=== PATIENT | female | born 2000 | race Two or more races ===

== ENCOUNTER 2018-04-19 20:51 | Emergency (ER) | payer SELFPAY ==
[~2018-04-19] VITALS: Ht 157.5 cm; Wt 68.2 kg
[2018-04-19] MEDS ORDERED: PREN-154 PO (21:03)
[2018-04-19] MEDS ORDERED: ACETAMINOPHEN 500 MG TABLET PO ONE (21:45)
[2018-04-19 22:18] VITALS: BP 128/84
[2018-04-19 22:30] LABS: INFLUENZA TYPE A NEGATIVE FOR TYPE A (NEGATIVE); INFLUENZA TYPE B NEGATIVE FOR TYPE B (NEGATIVE)
[2018-04-19 23:16] LABS: APPEARANCE,URINE CLEAR (CLEAR); BILIRUBIN,URINE NEGATIVE (NEGATIVE); GLUCOSE, URINE (UA) NEGATIVE (NEGATIVE); KETONES,URINE NEGATIVE (NEGATIVE); LEUKOCYTE ESTERASE ,URINE NEGATIVE (NEGATIVE); NITRATE,URINE NEGATIVE (NEGATIVE); OCCULT BLOOD,URINE NEGATIVE (NEGATIVE); PROTEIN,URINE NEGATIVE (NEGATIVE); UROBILINOGEN,URINE 0.2 mg/dL (<=1.0)
== END 2018-04-19 22:28 | disposition left against medical advice (07) ==
LOC: EMS 21:11
DX: O26.893 Other specified pregnancy related conditions, third trimester (principal); R50.9 Fever, unspecified; R52 Pain, unspecified; Z79.899 Other long term (current) drug therapy; Z3A.29 29 weeks gestation of pregnancy
CPT/HCPCS: 87804

== ENCOUNTER 2023-05-26 15:51 | Emergency (ER) | payer MEDICAID, OTHER ==
[~2023-05-26] VITALS: Ht 157.5 cm; Wt 70.0 kg
[~2023-05-26 15:51] MED LIST: PREN-154 PO
[2023-05-26] MEDS ORDERED: HYDROCODONE/ACETAMINOPHEN 5-325 MG TABLET PO ONE (18:00)
[2023-05-26 19:15] VITALS: TEMP 98.3
[2023-05-26] MEDS ORDERED: IBUP-1492 PO (19:16)
[2023-05-26 19:22] VITALS: BP 108/75; PULSE 76; RESP 18
== END 2023-05-26 19:37 | disposition home or self-care (01) ==
LOC: EMS 15:51
DX: S93.401A Sprain of unspecified ligament of right ankle, initial encounter (principal); F17.210 Nicotine dependence, cigarettes, uncomplicated; F12.90 Cannabis use, unspecified, uncomplicated; X50.1XXA Overexertion from prolonged static or awkward postures, initial encounter; Y93.89 Activity, other specified; Y92.89 Other specified places as the place of occurrence of the external cause; Y99.8 Other external cause status
CPT/HCPCS: 29515; 99283